=== PATIENT | female | born 1980 | race Caucasian/White ===

== ENCOUNTER 2017-05-25 07:06 | Emergency (ER) | END 2017-05-25 12:46 | disposition home or self-care (01) ==

== ENCOUNTER 2018-11-18 03:19 | Emergency (ER) | payer MEDICAID ==
[~2018-11-18] VITALS: Ht 165.1 cm; Wt 63.8 kg
[~2018-11-18 03:19] MED LIST: ACET500C5 PO; BENZ-6 PO; CETI10CA PO; GUAI120S25 PO; IBUP-1542 PO; OSEL75CA23 PO; PHEN177S43 MT
[2018-11-18 03:23] VITALS: BP 162/78; PULSE 73; RESP 16; Ht 165.1 cm; Wt 63.8 kg
[2018-11-18] MEDS ORDERED: KETOROLAC 30 MG INJ IM STA (03:36)
--- NOTE | 2018-11-18 03:36 | ERD ---
ER Documentation Chief Complaint Chief Complaint bilateral ribcage pain since 1am pt denies injury HPI This is a 38-year-old female presents here in the emergency department with complaints of bilateral rib pain, lower back pain. Stated that this pain woke her up at around 1:30 AM. Pain was described as sharp and worse with movement. LMP: Stated that she is on it. G3, . Denies headache, head injury, loss of consciousness, dizziness, neck pain, neck stiffness, throat pain, difficulty swallowing, difficulty breathing lying flat, shoulder pain, chest pain, abdominal pain, nausea, vomiting, constipation, diarrhea, urinary symptoms, or possibility being , loss of bowel and bladder control, trauma, injury, falls, difficulty walking due to pain, numbness or tingling sensation, calf pain, recent travel, recent major surgery in the last 3 weeks, calf pain, recent long travel, recent exposure to any illness, recent antibiotic use in the last 3 months, fever, chills, seizures. Past medical history: Surgical history: Social: Denies smoking, use of alcoholic beverages, use of illegal drugs. ROS All systems reviewed and are negative except as per history of present illness. Medications Home Meds Active Scripts Prednisone* (Prednisone*) 20 Mg Tab, 40 MG PO DAILY for 4 Days, TAB Prov:SUNIRIVERTERRY 11/18/18 Cyclobenzaprine Hcl* (Cyclobenzaprine Hcl*) 10 Mg Tablet, 10 MG PO TID PRN for MUSCLE SPASMS, #15 TAB Prov:SUNIILABLAZETERRY F 11/18/18 Ibuprofen* (Motrin*) 600 Mg Tab, 600 MG PO Q6H PRN for PAIN AND OR ELEVATED TEMP, #30 TAB Prov:PASILABLAZETERRY F 11/18/18 Albuterol Sulfate* (Proair HFA*) 8.5 Gm Hfa.aer.ad, 2 PUFF INH Q4 PRN for SHORTNESS OF BREATH, #1 INHALER Prov:PASILABLAZELISSANACHO F 11/18/18 Phenol* (Chloraseptic* [place]) 177 Ml [place].pump, 2 SPRAY MT Q2H PRN for SORE THROAT, #1 BOTTLE Prov:LEONILA SIN PA-C 05/25/17 Benzonatate* (Tessalon Perle*) 100 Mg Capsule, 100 MG PO Q8H PRN for COUGH, #20 CAP Prov:LEONILA SIN Shaquille CABAN 05/25/17 Acetaminophen* (Tylophen*) 500 Mg Capsule, 1 CAP PO Q6H PRN for PAIN AND OR ELEVATED TEMP, #20 CAP Prov:LEONILA SINLili CABAN 05/25/17 Ibuprofen* (Motrin*) 600 Mg Tab, 600 MG PO Q6H PRN for PAIN AND OR ELEVATED TEMP, #30 TAB Prov:LINDA MOORE NP 07/15/15 Cetirizine Hcl* (Zyrtec*) 10 Mg Capsule, 10 MG PO DAILY, #30 TAB.CHEW Prov:LINDA MOORE NP 07/15/15 Hvpkmtabhvi-I-Mxljxbrmvm Hb* (Guaifenesin* DM Syrup) 120 Ml Syrup, 10 ML PO Q4H PRN for COUGH, #120 ML Prov:LINDA MOORE NP 07/15/15 Oseltamivir Phosphate* (Tamiflu*) 75 Mg Capsule, 75 MG PO BID for 5 Days, CAP Prov:LINDA MOORE NP 07/15/15 Reported Medications [none] Unknown Strength No Conflict Check 07/15/15 Allergies Allergies: Coded Allergies: No Known Allergy (Unverified , 07/15/15) PMhx/Soc History of Surgery: No Anesthesia Reaction: No Hx Neurological Disorder: No Hx Respiratory Disorders: Yes (SORE THROAT AND FEVER X 2 DAYS) Hx Cardiac Disorders: No Hx Psychiatric Problems: No Hx Miscellaneous Medical Probl: No Hx Alcohol Use: No Hx Substance Use: No Hx Tobacco Use: No Physical Exam Vitals Physical Exam Head: Atraumatic Eyes: Normal Conjunctiva ENT: Normal External Ears, Nose and Mouth. Bilateral ears: TMs are not erythematous. No bleeding. No discharge. No hearing loss. No mastoid tenderness. Nose: There is no frontal or maxillary sinus tenderness palpation. Throat: Uvula is in midline and nondisplaced. Tonsils are +1 bilaterally without redness and without exudates. Tolerating secretions. Patent airway. Speaks full and clear sentences. No tripoding. Neck: Full range of motion. No meningismus. No nuchal rigidity. No signs of meningeal irritation. Resp: Clear to auscultation bilaterally. No accessory muscle use in breathing. Chest area: Examined with female automotive tire worker, Nancy ESTEVEZ. No vesicular lesions. No crepitus. Cardio: Regular rate and rhythm, no murmurs Abd: Soft, non tender, non distended. Normal bowel sounds. Negative Perez sign. Skin: No petechiae or rashes. Color appears normal for ethnicity. No skin tenting. No signs of severe dehydration. Back: No midline or flank tenderness. C-spine/T-spine are midline with good and full range of motion and is no swelling/deformity/bulging/point of tenderness. L-spine is in midline and is no swelling/deformity/bulging/point of tenderness. L-spine has pain to range of motion. L-spine has good and full range of motion. Bilateral hips are stable and unremarkable. No saddle anesthesia. Ext: No cyanosis, or edema. Negative straight leg test bilaterally. Negative cross straight leg test bilaterally. No calf tenderness bilaterally. Symmetrical knees. Bilateral pedal pulses are within normal limits. Capillary refills to bilateral lower extremities are less than 2 seconds. No neurovascular deficit. Ambulatory steady gait. Neur: Awake and alert. No neurological deficits. Psych: Normal Mood and Affect Results 24 hrs Laboratory Tests Test 11/18/18 03:49 POC Beta HCG, Qualitative NEGATIVE Current Medications Medications Dose Sig/Latha Start Time Status Last (Trade) Ordered Route PRN Stop Time Admin Dose Reason Admin Ketorolac 30 mg ONCE STAT 11/18/18 DC 11/18/18 Tromethamine IM 03:36 04:40 (Toradol) 11/18/18 03:38 Prednisone 60 mg ONCE ONCE 11/18/18 DC 11/18/18 (Prednisone) PO 06:30 06:28 11/18/18 06:31 Procedures/MDM Diagnostic tests: POC urine : Negative. X-ray of the chest: Hyperinflated lungs. X-ray of the L-spine: 1. No acute fracture or subluxation 2. Straightening of the normal lumbar lordosis. 3. Mild lower lumbar rotary levoscoliosis. 4. Mild degenerative changes of the bilateral sacroiliac joints. Treatment: Toradol IM. Prednisone. Re-evaluation: Denies chest pain, back pain. No accessory muscle use in breathing. Lung sounds are clear to auscultation. No saddle anesthesia. No n eurological deficits. Stated that she feels much better at this time and that she is ready to go home. Differential diagnosis I have low suspicion for rib fractures, pneumonia, pneumothorax, hemothorax, lumbar fracture, pyelonephritis, nephrolithiasis, obstructing kidney stones, septic stone, cauda equina syndrome. Final diagnosis: Shortness of breath. Prescription: Motrin. Flexeril. Pro-air. Prednisone. Follow-up with PCP in the next 24-48 hours. Come back here in the emergency department for any new symptoms or any worsening symptoms. All questions and concerns were answered. Patient and family members verbalized understanding and agreed with plan of care. Hemodynamically stable on discharge. Departure Diagnosis: Primary Impression: Shortness of breath Additional Impressions: Muscle spasm Low back strain Back pain Condition: Stable Additional Instructions: Follow-up with PCP in the next 24-48 hours. Come back here in the emergency department for any new symptoms or any worsening symptoms. TERRY HURTADO Nov 18, 2018 03:36
[2018-11-18] MEDS ORDERED: CYCL10TA7 PO (06:15)
[2018-11-18] MEDS ORDERED: IBUP-1542 PO (06:15)
[2018-11-18] MEDS ORDERED: ALBU8.5H8 INH (06:15)
[2018-11-18] MEDS ORDERED: PRED20TA PO (06:16)
[2018-11-18] MEDS ORDERED: predniSONE 20 MG TAB PO ONE (06:30)
== END 2018-11-18 06:33 | disposition home or self-care (01) ==
LOC: FTE 03:19
DX: S39.012A Strain of muscle, fascia and tendon of lower back, initial encounter (principal); M62.838 Other muscle spasm; R06.02 Shortness of breath; X58.XXXA Exposure to other specified factors, initial encounter; Y92.9 Unspecified place or not applicable
CPT/HCPCS: 71046; 72100; 81025; J1885; J7512; 96372